=== PATIENT | male | born 1970 | race Caucasian/White ===

== ENCOUNTER → 2021-08-12 | Outpatient (CLI) | payer OTHER | LOC: CT 13:10 | DX: R10.84 Generalized abdominal pain (principal); R19.5 Other fecal abnormalities | CPT/HCPCS: 74170; Q9967 ==

== ENCOUNTER → 2021-08-17 | Outpatient (CLI) | payer OTHER | LOC: US 13:11 | DX: Z86.718 Personal history of other venous thrombosis and embolism (principal) | CPT/HCPCS: 93970 ==

== ENCOUNTER → 2021-12-20 | Day surgery (SDC) | payer OTHER ==
[~2021-12-20] MED LIST: PROTONIX40 MG PO; XARELTO10 MG PO
== END | disposition home or self-care (01) ==
LOC: OR 07:04
DX: K92.1 Melena (principal); D12.5 Benign neoplasm of sigmoid colon; K29.50 Unspecified chronic gastritis without bleeding; B96.81 Helicobacter pylori [H. pylori] as the cause of diseases classified elsewhere; K22.10 Ulcer of esophagus without bleeding; K44.9 Diaphragmatic hernia without obstruction or gangrene; K64.8 Other hemorrhoids; K64.4 Residual hemorrhoidal skin tags; K25.9 Gastric ulcer, unspecified as acute or chronic, without hemorrhage or perforation; F17.220 Nicotine dependence, chewing tobacco, uncomplicated; Z79.01 Long term (current) use of anticoagulants; Z86.718 Personal history of other venous thrombosis and embolism
CPT/HCPCS: J2704; J7040